=== PATIENT | male | born 1995 | race Caucasian/White ===

== ENCOUNTER 2019-11-16 12:48 | Emergency (ER) | payer OTHER, SELFPAY ==
[2019-11-16 12:54] VITALS: BP 124/71; PULSE 76; RESP 18; TEMP 37; O2SAT 100
--- NOTE | 2019-11-16 13:13 | DI.RAD.S_ITS ---
PROCEDURE: XR LUMBAR SPINE 2-3V INDICATIONS: back pain TECHNIQUE: 3 views of the lumbar spine were acquired. COMPARISON: None. FINDINGS: Bones: 5 [id number] vertebrae are present. There is straightening of the normal lumbar lordosis. There are minimal multilevel degenerative changes of the lumbar spine. No vertebral body compression fractures. No suspicious bony lesions. Soft tissues: Overlying bowel gas pattern is nonobstructive. No suspicious soft tissue calcifications. IMPRESSION: Minimal multilevel degenerative changes of the lumbar spine. Dictated by: Khalif Simeon M.D. on 11/16/2019 at 14:33 Approved by: Khalif Simeon M.D. on 11/16/2019 at 14:36
--- NOTE | 2019-11-16 13:21 | ED_ITS ---
HPI - Back Pain/Injury <FATEMEH Thompson - Last Filed: 11/16/19 15:42> General Chief Complaint: Back Pain/Injury Stated Complaint: back injury Time Seen by Provider: 11/16/19 12:57 Source: patient Mode of arrival: Wheelchair Limitations: no limitations History of Present Illness HPI Narrative: The patient is a 24-year-old male current smoker who denies pertinent medical history presents with a chief complaint of back pain. He states he was carrying a heavy package of the stairs and felt sudden pain in the right side of his lower back, radiating down to his buttock and felt a shooting pain down to his foot. He denies any incontinence of bowel incontinence of bladder or saddle anesthesia. He has not taken anything at home to feel better. He denies any previous history of back pain. He denies any falls. Related Data Previous Rx's Medication Instructions Recorded cyclobenzaprine 10 mg PO TID PRN #20 tab 11/16/19 ketorolac 10 mg PO TID PRN #15 tab 11/16/19 Allergies Allergy/AdvReac Type Severity Reaction Status Date / Time No Known Drug Allergies Allergy Verified 11/16/19 12:59 Review of Systems <CHRISTY Thompson - Last Filed: 11/16/19 15:42> Review of Systems Narrative: GENERAL: Denies chills, fatigue, malaise, fever, sweats. HEENT: Denies sinus pain, ear pain, sore throat, difficulty swallowing, dizziness. RESPIRATORY: Denies dyspnea, cough, wheezing, hemoptysis, sputum. CARDIOVASCULAR: Denies chest pain, palpitations, orthopnea, edema, GASTROINTESTINAL: Denies nausea, vomiting, abdominal pain, diarrhea, constipation, melena. : Denies dysuria, frequency, incontinence, hematuria, urinary retention. MUSCULOSKELETAL: See HPI NEUROLOGIC: Denies weakness, headache, numbness, change in speech, confusion, seizures, incoordination. PSYCHIATRIC: No concerning psychosocial issues. 12 point review of systems is negative except for those stated above Patient History <FATEMEH Thompson - Last Filed: 11/16/19 15:42> Social History Smoking Status: Current every day smoker Smoking Status: Current every day smoker alcohol intake frequency: 0-2 drinks per day Substance Use Type: marijuana Exam <FATEMEH Thompson - Last Filed: 11/16/19 15:42> Narrative Exam Narrative: GENERAL: This is a well-nourished, well-developed patient, in appears anxious HEAD: Atraumatic. Normocephalic. No temporal or scalp tenderness. EYES: Pupils equal round and reactive. Extraocular motions intact. No scleral icterus. No injection or drainage. ENT: Nose without bleeding, purulent drainage or septal hematoma. Throat without erythema, tonsillar hypertrophy or exudate. Uvula midline. Airway patent. NECK: Trachea midline. No JVD or lymphadenopathy. Supple, nontender, no meningeal signs. CARDIOVASCULAR: Regular rate and rhythm without murmurs, gallops, or rubs. RESPIRATORY: Clear to auscultation. Breath sounds equal bilaterally. No wheezes, rales, or rhonchi. GASTROINTESTINAL: Abdomen soft, non-tender, nondistended. No hepato- splenomegaly, or palpable masses. No guarding. EXTREMITIES: No clubbing, cyanosis, or edema. No joint tenderness, effusion, or edema noted. BACK: Pain to palpation of lumbar spine without deformity or crepitance. No pain to C or T-spine palpation NEURO: AOx3. Strength is equal upper and lower extremities bilaterally. No gross cranial nerve deficit. Stable gait. SKIN: No rash or erythema on visible skin. No erythema, ecchymosis or visual abnormality noted on lower back Initial Vital Signs Initial Vital Signs: Vital Signs Temperature 98.6 F 11/16/19 12:54 Pulse Rate 76 11/16/19 12:54 Respiratory Rate 18 11/16/19 12:54 Blood Pressure 124/71 11/16/19 12:54 Pulse Oximetry 100 11/16/19 12:54 <Jenny Henley DO - Last Filed: 11/18/19 07:11> Initial Vital Signs Initial Vital Signs: Vital Signs Temperature 98.6 F 11/16/19 12:54 Pulse Rate 76 11/16/19 12:54 Respiratory Rate 18 11/16/19 12:54 Blood Pressure 124/71 11/16/19 12:54 Pulse Oximetry 100 11/16/19 12:54 Course <FATEMEH Thompson - Last Filed: 11/16/19 15:42> Orders Ordered: Discontinued Medications Cyclobenzaprine HCl (Flexeril) 10 mg PO NOW ONE Stop: 11/16/19 13:14 Last Admin: 11/16/19 13:26 Dose: 10 mg Documented by: ZUNILDA Ketorolac Tromethamine (Toradol) 60 mg IM NOW ONE Stop: 11/16/19 13:14 Last Admin: 11/16/19 13:26 Dose: 60 mg Documented by: ZUNILDA Vital Signs Vital signs: Vital Signs - 8 hr 11/16/19 12:54 11/16/19 15:02 Temperature 98.6 F Pulse Rate 76 77 Respiratory Rate 18 16 Blood Pressure 124/71 120/72 Pulse Oximetry 100 97 <Jenny Henley DO - Last Filed: 11/18/19 07:11> Orders Ordered: Discontinued Medications Cyclobenzaprine HCl (Flexeril) 10 mg PO NOW ONE Stop: 11/16/19 13:14 Last Admin: 11/16/19 13:26 Dose: 10 mg Documented by: ZUNILDA Ketorolac Tromethamine (Toradol) 60 mg IM NOW ONE Stop: 11/16/19 13:14 Last Admin: 11/16/19 13:26 Dose: 60 mg Documented by: ZUNILDA Vital Signs Vital signs: Vital Signs - 8 hr 11/16/19 12:54 11/16/19 15:02 Temperature 98.6 F Pulse Rate 76 77 Respiratory Rate 18 16 Blood Pressure 124/71 120/72 Pulse Oximetry 100 97 MDM - Back Pain/Injury <FATEMEH Thompson - Last Filed: 11/16/19 15:42> Imaging Data Lumbar x-ray: Radiologist's Impression: [place] [address] XRay Report Signed Patient: Kun MarcusMR#: [id number] : 1995Acct:[id number] Age/Sex: 24 / MDate of Service: 11/16/19 Loc: ED Accession Number: [id number] Procedure: XR lumbar spine 2-3V Ordering Provider: Laura Gant PROCEDURE: XR LUMBAR SPINE 2-3V INDICATIONS: back pain TECHNIQUE: 3 views of the lumbar spine were acquired. COMPARISON: None. FINDINGS: Bones: 5 [id number] vertebrae are present. There is straightening of the normal lumbar lordosis. There are minimal multilevel degenerative changes of the lumbar spine. No vertebral body compression fractures. No suspicious bony lesions. Soft tissues: Overlying bowel gas pattern is nonobstructive. No suspicious soft tissue calcifications. IMPRESSION: Minimal multilevel degenerative changes of the lumbar spine. Dictated by: Khalif Simeon M.D. on 11/16/2019 at 14:33 Approved by: Khalif Simeon M.D. on 11/16/2019 at 14:36 [facility] Narrative Medical decision making narrative: The patient is a 24-year-old male who presents with a chief complaint of back pain after carrying a heavy item up stairs. X-ray shows no acute findings. He responded well to Toradol and Flexeril in the emergency department. He has no red flag symptoms of incontinence of bowel, incontinence of bladder saddle anesthesia but states understanding that these are return precautions. Discussed at length follow up with PCP and recommended that he contact [facility] for follow-up provider. Discussed at length return precautions the emergency department including incontinence bowel, incontinence of bladder saddle anesthesia. Patient states understanding return precautions as well as follow-up care and has no questions or concerns upon discharge. Discharge Plan Departure Patient Disposition: Home Clinical Impression: Lumbar back pain Discharge Date/Time: 11/16/19 15:02 Instructions: DI for Low Back Pain, DI for Back Spasm, DI for Back Strain or Sprain Activity Restrictions/Additional Instructions: Your x-ray show no acute fracture or acute findings today I sent 2 prescriptions to brijesh Zhou I have given you a prescription of Toradol. This is an NSAID. Do not combine it with other NSAIDs such as Aleve or ibuprofen. I suggest taking it with some food, as it can irritate your stomach. Be aware that cyclobenzaprine as a muscle relaxer which can make you sedated Please follow-up with primary care provider in the next few days. You should also contact [facility] for follow-up provider. Please come back to the emergency department for any acute concerns such as incontinence of bowel, incontinence of bladder numbness or numbness in your groin Prescriptions: New ketorolac 10 mg tablet 10 mg PO TID PRN (Reason: pain) Qty: 15 RF: 0 cyclobenzaprine 10 mg tablet 10 mg PO TID PRN (Reason: muscle spasm) Qty: 20 RF: 0 Stand Alone Forms: Work Release Note
[2019-11-16] MEDS: KETOROLAC 60 MG/2 ML VIAL IM (13:26)
[2019-11-16] MEDS: CYCLOBENZAPRINE 10 MG TABLET PO (13:26)
[2019-11-16 15:02] VITALS: BP 120/72; PULSE 77; RESP 16; O2SAT 97
== END 2019-11-16 15:02 | disposition home or self-care (01) ==
PROVIDERS: Emergency Provider Nurse Practitioner Family
DX: M54.5 Low back pain (principal); X50.0XXA Overexertion from strenuous movement or load, initial encounter; Y99.0 Civilian activity done for income or pay
CPT/HCPCS: 72100; 96372; 99282; 99283; J1885